=== PATIENT | male | born 1980 | race Two or more races ===

== ENCOUNTER → 2018-09-20 | Emergency (ER) | payer OTHER ==
[~2018-09-20] VITALS: Ht 175.3 cm; Wt 69.4 kg
== END | disposition left against medical advice (07) ==
LOC: ER 23:46
DX: Z53.20 Procedure and treatment not carried out because of patient's decision for unspecified reasons (principal)

== ENCOUNTER 2024-10-06 13:59 | Outpatient (CLI) | payer OTHER | END 2024-10-06 14:20 | disposition home or self-care (01) | LOC: TOM 13:59 | PROVIDERS: ATTEND Specialist | DX: R10.12 Left upper quadrant pain (principal) ==

== ENCOUNTER 2025-04-21 09:57 | Outpatient (CLI) | payer OTHER | END 2025-04-21 10:18 | disposition home or self-care (01) | LOC: TOM 09:57 | DX: R10.11 Right upper quadrant pain (principal); M75.02 Adhesive capsulitis of left shoulder; M75.01 Adhesive capsulitis of right shoulder ==